=== PATIENT | female | born 1965 | race American Indian/Alaskan Native ===

== ENCOUNTER 2017-09-22 16:58 | Emergency (ER) | payer OTHER ==
[2017-09-22 17:01] VITALS: BMI 27.1
--- NOTE | 2017-09-22 17:28 | ED PDOC ---
Arrival/HPI - General Chief Complaint: High Blood Pressure Time Seen by Provider: 09/22/17 17:11 Historian: Patient - History of Present Illness Narrative History of Present Illness (Text): 09/22/17 17:28 This 51 yo female with pmh HTN, presents to this ED c/o blood pressure is elevated. Patient admits stopping Enalapril x 2 weeks ago. Denies CP, GARCIA, SOB , dizziness, back pain, dysarthria, dysphagia, weakness, or abnormal gait. Past Medical History - Provider Review Nursing Documentation Reviewed: Yes - Infectious Disease Hx of Infectious Diseases: None - Cardiac Hx Hypertension: Yes - Pulmonary Hx Asthma: Yes - Psychiatric Hx Substance Use: No - Surgical History Hx Cholecystectomy: Yes Hx Tubal Ligation: Yes - Anesthesia Hx Anesthesia: Yes Hx Anesthesia Reactions: No Hx Malignant Hyperthermia: No Family/Social History - Physician Review Nursing Documentation Reviewed: Yes Family/Social History: Other (noncontributory) Smoking Status: Light Smoker < 10 Cigarettes Daily Hx Alcohol Use: No Hx Substance Use: No Allergies/Home Meds Allergies/Adverse Reactions: Allergies No Known Allergies Allergy (Verified 09/22/17 17:01) Home Medications: Home Meds Medication Instructions Recorded Confirmed No Known Home Med 09/22/17 09/22/17 Review of Systems - Review of Systems Constitutional: Normal. absent: Fatigue, Weight Change, Fevers Eyes: Normal ENT: Normal Respiratory: Normal. absent: SOB Cardiovascular: Normal. absent: Chest Pain, Palpitations, Edema, Calf Pain, LINDSEY , Orthopnea, Syncope Gastrointestinal: Normal. absent: Abdominal Pain, Nausea, Vomiting Genitourinary Female: Normal Musculoskeletal: Normal. absent: Back Pain, Neck Pain Skin: Normal Neurological: Normal. absent: Headache, Dizziness, Focal Weakness, Gait Changes , Speech Changes, Facial Droop, Disequilibrium, Seizure Endocrine: Normal Hemo/Lymphatic: Normal Psychiatric: Normal Physical Exam Vital Signs Temp Pulse Resp BP Pulse Ox 09/22/17 19:11 98.0 F 87 19 155/99 H 99 09/22/17 18:38 155/99 H 09/22/17 17:05 172/121 H 09/22/17 17:01 97.8 F 95 H 18 190/122 H 98 Temperature: Afebrile Blood Pressure: Normal Pulse: Regular Respiratory Rate: Normal Appearance: Positive for: Well-Appearing, Non-Toxic, Comfortable Pain Distress: None Mental Status: Positive for: Alert and Oriented X 3 - Systems Exam Head: Present: Atraumatic, Normocephalic Pupils: Present: PERRL Extroacular Muscles: Present: EOMI Conjunctiva: Present: Normal Mouth: Present: Moist Mucous Membranes Neck: Present: Normal Range of Motion. No: Meningeal Signs, MIDLINE TENDERNESS , Paraspinal Tenderness Respiratory/Chest: Present: Clear to Auscultation, Good Air Exchange. No: Respiratory Distress, Accessory Muscle Use, Wheezes, Retracting, Rhonchi, Tachypneic Cardiovascular: Present: Regular Rate and Rhythm, Normal S1, S2. No: Murmurs Abdomen: No: Tenderness, Distention, Peritoneal Signs, Rebound, Guarding, Hernias Back: Present: Normal Inspection. No: CVA Tenderness Upper Extremity: Present: Normal Inspection, Normal ROM, NORMAL PULSES. No: Cyanosis, Edema Lower Extremity: Present: Normal Inspection, NORMAL PULSES, Normal ROM. No: Edema Neurological: Present: GCS=15, CN II-XII Intact, Speech Normal, Motor Func Grossly Intact, Normal Sensory Function, Normal Cerebellar Funct, Memory Normal , Other (No neuro focal deficits. Normal gait.) Skin: Present: Warm, Dry, Normal Color. No: Rashes Psychiatric: Present: Alert, Oriented x 3, Normal Insight, Normal Concentration Medical Decision Making ED Course and Treatment: 09/22/17 18:39 Patient came to this ED c/o elevated blood pressure. Patient admits she stop taking Enalapril x 2 weeks ago, due to side effects. Patient remained stable during the course of ED visit. Patient was recommended to f/u pmd in 1-2 days to have blood pressure recheck. Make sure to continue with Enalapril as recommended by your doctor. Return to emergency if symptoms worsen, chest pain , headache. Patient was recommended to be complaint with medication, low salt diet, and to take ASA 81 mg daily. Avoid alcohol, or coffee Re-evaluation Time: 18:44 Reassessment Condition: Re-examined, Improved - Lab Interpretations Lab Results: 09/22/17 17:52 09/22/17 17:52 Lab Results 09/22/17 17:52: Sodium 144, Potassium 4.1, Chloride 105, Carbon Dioxide 26, Anion Gap 17, BUN 16, Creatinine 0.6 L, Est GFR ( Amer) > 60, Est GFR ( Non-Af Amer) > 60, Random Glucose 96, Calcium 9.6, Magnesium 2.0, Total Bilirubin 0.3, AST 33, ALT 43, Alkaline Phosphatase 92, Lactate Dehydrogenase 576, Total Creatine Kinase 91, Troponin I < 0.01, Total Protein 7.8, Albumin 4.7 , Globulin 3.2, Albumin/Globulin Ratio 1.5 09/22/17 17:52: WBC 5.1, RBC 4.51, Hgb 13.7, Hct 41.5, MCV 92.0, MCH 30.4, MCHC 33.0, RDW 13.3, Plt Count 229, MPV 10.4, Gran % 46.3 L, Lymph % (Auto) 40.6 H, [place] % (Auto) 8.0 H, Eos % (Auto) 4.7, Baso % (Auto) 0.4, Gran # 2.37, Lymph # ( Auto) 2.1, [place] # (Auto) 0.4, Eos # (Auto) 0.2, Baso # (Auto) 0.02 I have reviewed the lab results: Yes Interpretation: No clinic. lab abnormalty - RAD Interpretation Radiology Orders: 09/22/17 17:32 CHEST PORTABLE [RAD] Stat - EKG Interpretation Interpreted by ED Physician: Yes (NSR @ [address] changes) Type: 12 lead EKG Comparison: No previous EKG avail. - Medication Orders Current Medication Orders: Discontinued Medications Lisinopril (Zestril) 20 mg PO STAT STA Stop: 09/22/17 18:45 Last Admin: 09/22/17 19:11 Dose: Not Given Non-Admin Reason: Patient Refused Disposition/Present on Arrival - Present on Arrival Any Indicators Present on Arrival: No History of DVT/PE: No History of Uncontrolled Diabetes: No Urinary Catheter: No History of Decub. Ulcer: No History Surgical Site Infection Following: None - Disposition Have Diagnosis and Disposition been Completed?: Yes Diagnosis: Hypertension Disposition: HOME/ ROUTINE Disposition Time: 18:45 Patient Plan: Discharge Condition: IMPROVED Discharge Instructions (ExitCare): High Blood Pressure in Adults Additional Instructions: Call private doctor for follow up visit and revaluation in 1-2 days. Take your medication daily as recommended by your doctor. Return to emergency if symptoms worsen, headache, chest pain, dizziness, or shortness of breath. Take aspirin 81 mg daily, avoid coffee or alcohol. Be compliant with your blood pressure medication. Low salt diet is recommended. Referrals: Mónica Billingsley, [Primary Care Provider] - Follow up with primary Georgia Sanches MD [Staff Provider] - Follow up with primary Forms: [facility] (Romansh)
[2017-09-22 18:09] LABS: BASO # 0.02 K/mm3 (0.0-2.0); BASO % 0.4 % (0.0-3.0); EOS # 0.2 (0.0-0.7); EOS % 4.7 % (1.5-5.0); GRAN # 2.37 (1.4-6.5); GRAN % 46.3 % (50.0-68.0); HEMOGLOBIN 13.7 g/dL (12.0-16.0); LYMPH # 2.1 (1.2-3.4); LYMPH % 40.6 % (22.0-35.0); MEAN CORPUSCULAR HEMOGLOBIN 30.4 pg (25.0-35.0); MEAN PLATELET VOLUME 10.4 fl (7.0-11.0); MONO # 0.4 (0.1-0.6); RBC 4.51 10^6/uL (3.5-6.1); RED CELL DISTRIBUTION WIDTH 13.3 % (11.5-14.5); WHITE BLOOD COUNT 5.1 10^3/ul (4.5-11.0)
[2017-09-22 18:11] LABS: ALB/GLOB RATIO 1.5 (1.1-1.8); ALBUMIN 4.7 g/dL (3.0-4.8); ALT/SGPT 43 U/L (7-56); AST/SGOT 33 U/L (14-36); BLOOD UREA NITROGEN 16 mg/dL (7-21); CALCIUM 9.6 mg/dL (8.4-10.5); GFR AFRICAN-AMERICAN > 60; GFR NON-AFRICAN AMERICAN > 60
[2017-09-22 18:22] LABS: TROPONIN I < 0.01 ng/mL
[2017-09-22 18:38] VITALS: BP 155/99
[2017-09-22 19:13] VITALS: PULSE 87; RESP 19; TEMP 98; O2SAT 99
--- NOTE | 2017-09-23 10:09 | CARD ---
APPROVED REPORT EKG Measurement Heart [id number] <Conclusion> Normal sinus rhythm Normal ECG
== END 2017-09-22 19:13 | disposition home or self-care (01) ==
LOC: ED 16:58
DX: I10 Essential (primary) hypertension (principal); F17.210 Nicotine dependence, cigarettes, uncomplicated

== ENCOUNTER 2018-07-23 18:20 | Emergency (ER) | payer OTHER | END 2018-07-23 19:40 | disposition home or self-care (01) | LOC: ED 18:20 ==

== ENCOUNTER 2018-07-25 13:21 | Emergency (ER) | payer OTHER ==
[2018-07-25 13:36] VITALS: BMI 24.1
--- NOTE | 2018-07-25 14:13 | ED PDOC ---
Arrival/HPI - General Chief Complaint: High Blood Pressure Time Seen by Provider: 07/25/18 13:44 Historian: Patient - History of Present Illness Narrative History of Present Illness (Text): 07/25/18 14:07 52 year old F with a PMH of hypertension and anxiety presents to the emergency department complaining of "feeling out of my head" and "feeling weird". Triage states shortness of breath, however patient currently denies this. States that she has history of HTN, her dose of amlodipine was increased from 5mg to 10mg and she was started on a diuretic two weeks ago, symptoms started shortly after the medication changes. She denies taking any medications for anxiety. Patient denies any fevers, chills, headache, dizziness, chest pain, dyspnea on exertion, cough, abdominal pain, nausea, vomiting, diarrhea, back pain, neck pain, or any other complaint. Time/Duration: 24 hours Symptom Onset: Sudden Symptom Course: Unchanged Activities at Onset: Light Context: Home Past Medical History - Provider Review Nursing Documentation Reviewed: Yes - Infectious Disease Hx of Infectious Diseases: None - Cardiac Hx Hypertension: Yes - Pulmonary Hx Asthma: Yes - Psychiatric Hx Anxiety: Yes (No meds) Hx Substance Use: No - Surgical History Hx Cholecystectomy: Yes Hx Tubal Ligation: Yes - Anesthesia Hx Anesthesia: Yes Hx Anesthesia Reactions: No Hx Malignant Hyperthermia: No Family/Social History - Physician Review Nursing Documentation Reviewed: Yes Family/Social History: No Known Family HX Smoking Status: Light Smoker < 10 Cigarettes Daily Hx Alcohol Use: Yes Hx Substance Use: No Allergies/Home Meds Allergies/Adverse Reactions: Allergies No Known Allergies Allergy (Verified 07/23/18 18:34) Home Medications: Home Meds Medication Instructions Recorded Confirmed amLODIPine [Norvasc] 10 mg PO DAILY 07/23/18 07/23/18 hydroCHLOROthiazide [Microzide] 12.5 mg PO DAILY 07/23/18 07/23/18 traZODone [Desyrel] 50 mg PO HS PRN 07/23/18 07/23/18 Review of Systems - Physician Review All systems were reviewed & negative as marked: Yes - Review of Systems Constitutional: Normal. absent: Fevers Respiratory: absent: SOB, Cough, Wheezing Cardiovascular: absent: Chest Pain Gastrointestinal: absent: Abdominal Pain Musculoskeletal: absent: Arthralgias, Back Pain, Myalgias Neurological: absent: Headache, Dizziness, Seizure Physical Exam Vital Signs Reviewed: Yes Temperature: Afebrile Blood Pressure: Normal Pulse: Regular Respiratory Rate: Normal Appearance: Positive for: Well-Appearing, Non-Toxic, Comfortable Mental Status: Positive for: Alert and Oriented X 3 - Systems Exam Head: Present: Atraumatic, Normocephalic Pupils: Present: PERRL Mouth: Present: Moist Mucous Membranes Respiratory/Chest: Present: Clear to Auscultation, Good Air Exchange. No: Respiratory Distress, Accessory Muscle Use Cardiovascular: Present: Regular Rate and Rhythm, Normal S1, S2. No: Murmurs Abdomen: No: Tenderness, Rebound, Guarding Upper Extremity: Present: Normal Inspection Lower Extremity: Present: Normal Inspection Neurological: Present: GCS=15, Speech Normal Skin: Present: Warm, Dry. No: Rashes Psychiatric: Present: Alert, Oriented x 3, Normal Insight, Normal Concentration, Anxious Medical Decision Making ED Course and Treatment: 07/25/18 14:15 Impression: 52 year old F presents to the emergency department complaining of "feeling out of my head" and "feeling weird". Plan: --Labs --CXR -- Reassess and disposition Prior Visits: Notes and results from previous visits were reviewed. Progress Notes: 07/25/18 13:34 EKG shows NSR at 89 BPM with normal QRS, normal axis, normal intervals, no acute ST/T wave abnormalities. Interpreted by me. 07/25/18 15:23 CXR: No active pulmonary disease Labs, EKG, CXR results reviewed and were unremarkable. Results discussed with patient. Advised outpatient followup, patient states that she has an appointment with her PMD tomorrow. Stable for discharge home at this time. - RAD Interpretation Radiology Orders: 07/25/18 13:59 CHEST PORTABLE [RAD] Stat - PA / MEETING MANAGER / Resident Statement MD/DO has reviewed & agrees with the documentation as recorded. - Scribe Statement The provider has reviewed the documentation as recorded by the Meredith Hall All medical record entries made by the Scribe were at my direction and personally dictated by me. I have reviewed the chart and agree that the record accurately reflects my personal performance of the history, physical exam, medical decision making, and the department course for this patient. I have also personally directed, reviewed, and agree with the discharge instructions and disposition. Disposition/Present on Arrival - Present on Arrival Any Indicators Present on Arrival: No History of DVT/PE: No History of Uncontrolled Diabetes: No Urinary Catheter: No History of Decub. Ulcer: No History Surgical Site Infection Following: None - Disposition Have Diagnosis and Disposition been Completed?: Yes Diagnosis: Anxiety, Dyspnea Disposition: HOME/ ROUTINE Disposition Time: 15:43 Patient Plan: Discharge Patient Problems: Current Active Problems Problem Status Onset Anxiety Acute Dyspnea Acute Condition: STABLE Discharge Instructions (ExitCare): Anxiety, Adult (DC), Shortness of Breath (Dyspnea) (DC) Additional Instructions: YOSEF CATES, thank you for letting us take care of you today. Your provider was Mary Abdalla MD and you were treated for troble breathing / dizzy. The emergency medical care you received today was directed at your acute symptoms. If you were prescribed any medication, please fill it and take as directed. It may take several days for your symptoms to resolve. Return to the Emergency Department if your symptoms worsen, do not improve, or if you have any other problems. Please contact your doctor or call one of the physicians/clinics you have been referred to that are listed on the Patient Visit Information form that is included in your discharge packet. Bring any paperwork you were given at [facility] with you along with any medications you are taking to your follow up visit. Our treatment cannot replace ongoing medical care by a primary care provider outside of the emergency department. Thank you for allowing the [facility] team to be part of your care today. If you had an X-Ray or CT scan: A Radiologist will review the ED reading if any change in treatment is needed we will contact you. If you had a blood, urine, or wound culture: It will take several days for the results, if any change in treatment is needed we will contact you. If you had an STI test: It will take 48 hours for the results. Please call after 1 week if you have not heard back. Referrals: Maria Guadalupe Younger [Primary Care Provider] - Follow up with primary Forms: [facility] (Spanish)
--- NOTE | 2018-07-25 15:16 | RAD ---
Date of service: 07/25/2018 HISTORY: dyspnea COMPARISON: No prior. FINDINGS: LUNGS: The lungs are well inflated and clear. PLEURA: No pleural effusions or pneumothorax. CARDIOVASCULAR: The heart is normal in size. No aortic atherosclerotic calcifications present. OSSEOUS STRUCTURES: Within normal limits for the patient's age. VISUALIZED UPPER ABDOMEN: Normal. OTHER FINDINGS: None. IMPRESSION: No active pulmonary disease.
[2018-07-25 15:23] LABS: BASO # 0.01 K/mm3 (0.0-2.0); BASO % 0.2 % (0.0-3.0); EOS # 0.2 (0.0-0.7); EOS % 3.4 % (1.5-5.0); HEMOGLOBIN 13.7 g/dL (12.0-16.0); LYMPH # 1.7 (1.2-3.4); LYMPH % 34.7 % (22.0-35.0); MEAN CELL VOLUME 92.7 fl (80.0-105.0); MEAN CORPUSCULAR HEMOGLOBIN 30.1 pg (25.0-35.0); MEAN CORPUSCULAR HGB CONC 32.5 g/dl (31.0-37.0); MEAN PLATELET VOLUME 10.2 fl (7.0-11.0); MONO # 0.4 (0.1-0.6); MONO % 8.4 % (1.0-6.0); RBC 4.55 10^6/uL (3.5-6.1); RED CELL DISTRIBUTION WIDTH 13.7 % (11.5-14.5); WHITE BLOOD COUNT 4.8 10^3/uL (4.5-11.0)
[2018-07-25 15:31] LABS: ALB/GLOB RATIO 1.2 (1.1-1.8); ALBUMIN 4.6 g/dL (3.0-4.8); ALT/SGPT 16 U/L (7-56); AST/SGOT 36 U/L (14-36); BLOOD UREA NITROGEN 17 mg/dL (7-21); CALCIUM 9.7 mg/dL (8.4-10.5); GFR NON-AFRICAN AMERICAN > 60
[2018-07-25 15:42] LABS: TROPONIN I < 0.01 ng/mL
[2018-07-25 16:15] VITALS: BP 134/88; PULSE 82; RESP 18; TEMP 98.3; O2SAT 100
--- NOTE | 2018-07-26 16:59 | CARD ---
APPROVED REPORT Date of service: 07/25/2018 EKG Measurement Heart [id number] <Conclusion> Normal sinus rhythm Possible Anterior infarct, age undetermined Abnormal ECG
== END 2018-07-25 16:30 | disposition home or self-care (01) ==
LOC: ED 13:21
DX: F41.9 Anxiety disorder, unspecified (principal); R06.00 Dyspnea, unspecified; F17.210 Nicotine dependence, cigarettes, uncomplicated; I10 Essential (primary) hypertension